=== PATIENT | male | born 1955 | race Hispanic/Latino ===

== ENCOUNTER 2019-08-30 18:36 | Emergency (ER) | payer BC ==
[~2019-08-30] VITALS: Ht 177.8 cm; Wt 97.1 kg
[2019-08-30] MEDS ORDERED: HYDROCODONE/APAP 10MG-325MG TAB ONE (19:02)
[2019-08-30] MEDS ORDERED: LIDOCAINE HCL 1% LOCAL INJ 20 ML VIAL ONE (19:03)
[2019-08-30] MEDS ORDERED: TETANUS/DIPHTHERIA TOX ADULT 0.5 ML SYR IM ONE (19:15)
[2019-08-30] MEDS ORDERED: LIDOCAINE HCL 1% LOCAL INJ 20 ML VIAL INJ ONE (19:15)
[2019-08-30] MEDS ORDERED: HYDROCODONE/APAP 10MG-325MG TAB PO ONE (19:15)
--- NOTE | 2019-08-30 20:15 | Diagnostic Imaging Report ---
HAND 3+ VIEWS RIGHT - 3 views HISTORY: Pain. Crushed fourth finger. COMPARISON: None available. FINDINGS: Bones: Displaced fracture of the distal phalanx of the fourth finger with palmar angulation. Joints: The joint spaces are well-maintained. Soft tissues: Soft tissue swelling of the fourth digit with possible laceration. IMPRESSION: Displaced fracture of the distal phalanx of the fourth finger with palmar angulation. Correlate for open fracture. Signed by: Dr. Jose Posadas M.D. on 08/30/2019 8:12 PM
[2019-08-30] MEDS ORDERED: CEFAZOLIN SOD 1 GM VIAL IV STA (20:47)
[2019-08-30] MEDS ORDERED: KEFLEX500 MG PO (20:50)
[2019-08-30] MEDS ORDERED: TYLENOL WITH C1 EACH PO (20:50)
[2019-08-30] MEDS ORDERED: CEFAZOLIN SOD 1 GM/NS 50ML 50 ML IV ONE ×2 (20:59→21:00)
[2019-08-30] MEDS ORDERED: CEFAZOLIN SOD 1 GM VIAL IM ONE (21:15)
[2019-08-30 21:19] VITALS: BP 130/71
== END 2019-08-30 21:22 | disposition home or self-care (01) ==
LOC: ER 18:36
DX: S62.634B Displaced fracture of distal phalanx of right ring finger, initial encounter for open fracture (principal); S67.194A Crushing injury of right ring finger, initial encounter; W20.8XXA Other cause of strike by thrown, projected or falling object, initial encounter; Y92.008 Other place in unspecified non-institutional (private) residence as the place of occurrence of the external cause; I10 Essential (primary) hypertension
CPT/HCPCS: 12001; 64450; 73130; 90471; 90714; 99283; J0690 ×2; J2001